=== PATIENT | male | born 1940 | race Caucasian/White ===

== ENCOUNTER 2017-01-17 06:53 | Day surgery (SDC) | payer MEDICARE ==
[2017-01-17] MEDS ORDERED: *PACU ONLY* KETAMINE HCL 10 MG/ML (20ML) VIAL IV ONE (06:54)
[2017-01-17] MEDS ORDERED: BUPIVACAINE 0.75% W/EPI MPF 30ML VIAL IVP ONE (06:54)
[2017-01-17] MEDS ORDERED: LIDOCAINE 1% W/EPI 1:200,000 MPF 30ML SQ ONE (06:54)
[2017-01-17] MEDS ORDERED: DEXAMETHASONE PRESERVATIVE FREE 10MG/ML VIAL IV ONE (06:54)
[2017-01-17] MEDS ORDERED: FENTANYL PF 100MCG/2ML VIAL IV ONE (06:54)
[2017-01-17] MEDS ORDERED: LIDOCAINE 2% MDV (20MG/ML) 20ML VIAL IV ONE (06:54)
[2017-01-17] MEDS ORDERED: MIDAZOLAM HCL 2MG/2ML VIAL IV ONE (06:54)
[2017-01-17] MEDS ORDERED: PROPOFOL 10 MG/ML VIAL IV ONE (06:54)
--- NOTE | 2017-01-18 05:10 | Operative Note - [place] ---
DATE OF SURGERY: 01/17/2017. 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 POSTOPERATIVE DIAGNOSIS: CERVICAL SPONDYLOSIS WITHOUT MYELOPATHY, ICD-10 CODE M47.812. OPERATION: Radiofrequency rhizotomy, right cervical facets 4-5, 5-6, and 6-7. SURGEON: Oksana Kinney D.O. ANESTHESIA: Local sedation. ANESTHESIA PROVIDER: Cris Sparrow CRNA. INDICATION: This patient presents with pain which is right sided in the neck and shoulder. Diagnostics show multilevel spondylosis, endplate spurring, and disc abnormalities. A rhizotomy series and facet series in the past provided 75 to 90 percent pain control. Due to the failure of other therapies, he is returning today for repeat cervical rhizotomy. PROCEDURE: Intravenous line, vital sign monitoring, and intravenous sedation. Prepped and draped with sterile technique with the patient positioned prone. Cervical facets on the right at 4-5, 5-6, and 6-7 were marked and infiltrated, and a 22-gauge rhizotomy canula was positioned. Stimulation trial was conducted and rhizotomy burn was performed. Local with anti-inflammatory into the sites. Topical antibiotic and sterile dressing were applied. Will monitor and evaluate. OKSANA KINNEY D.O. Date & Time JOB NUMBER: [id number] cc: Dex Adams M.D. MTDWashington
== END 2017-01-17 09:36 | disposition home or self-care (01) ==
LOC: SUR 06:53
PROVIDERS: ATTEND Pain Medicine Interventional Pain Medicine
DX: M47.812 Spondylosis without myelopathy or radiculopathy, cervical region (principal); I10 Essential (primary) hypertension; E78.00 Pure hypercholesterolemia, unspecified
CPT/HCPCS: 64633; 64634 ×2; 01936; J1100

== ENCOUNTER 2017-05-03 09:37 | Day surgery (SDC) | payer MEDICARE ==
[~2017-05-03 09:37] MED LIST: ACETAMINOPHEN 1,000 MG/100 ML BTL IV ONE
[2017-05-03] MEDS ORDERED: SEVOFLURANE 250 ML INH ONE (09:38)
[2017-05-03] MEDS ORDERED: KETOROLAC 30 MG/ML VIAL IVP ONE (09:38)
[2017-05-03] MEDS ORDERED: PROPOFOL 10 MG/ML VIAL IV ONE (09:38)
[2017-05-03] MEDS ORDERED: *PACU ONLY* KETAMINE HCL 10 MG/ML (20ML) VIAL IV ONE (09:38)
[2017-05-03] MEDS ORDERED: LIDOCAINE 2% MDV (20MG/ML) 20ML VIAL IV ONE (09:38)
--- NOTE | 2017-05-04 13:10 | Operative Note ---
DATE OF SURGERY: 05/03/2017 Surgeon: Kenrick Morgan DO Referring physician: Dex Adams MD PREOPERATIVE DIAGNOSIS: Trigger finger of the left middle finger. POSTOPERATIVE DIAGNOSIS: Trigger finger of the left middle finger. OPERATION: Tenotomy A1 andrew left middle finger, using a 3.5 loupe magnification. Anesthesia: General. PROCEDURE: This 77-year-old male was taken to the operating room and placed in the supine position on the operating room table. General anesthesia was induced and the left hand was elevated, prepped with Hibiclens, and draped in the usual sterile fashion. After exsanguination with tourniquet and elevation and prepping and draping, we made a longitudinal incision on the palm overlying the third metacarpal head, dissecting down through the skin and subcutaneous tissue; the length of the excision approximately 1.5 cm. Then, we dissected subcutaneous tissue, protecting the neurovascular bundles both medially and laterally, to expose the proximal edge of the A1 andrew. This was then incised from its proximal to its distal margin under direct vision. When we incised the andrew, a considerable amount of serous fluid came out from the inflammation of the tenosynovium. Surprisingly, a small nodularity of the tendon was noted and once the andrew had been completely decompressed, the finger was taken through a range of motion and found not to have any restriction or compression. The wound was irrigated and the wound closed with interrupted 6-0 nylon suture. Sterile dressings were applied and the patient taken to the recovery room in satisfactory condition. GROSS PATHOLOGY: This patient demonstrated a trigger finger of the left middle finger. The tendon itself appeared to be normal except for a small nodularity of the superficialis tendon, but no disruption of its fibers were identified. MTDD
== END 2017-05-03 12:47 | disposition home or self-care (01) ==
LOC: SUR 09:37
PROVIDERS: ATTEND Orthopaedic Surgery
DX: M65.332 Trigger finger, left middle finger (principal); E78.00 Pure hypercholesterolemia, unspecified; I10 Essential (primary) hypertension
CPT/HCPCS: 26055; 01810; J1885

== ENCOUNTER 2018-11-06 06:59 | Day surgery (SDC) | payer MEDICARE ==
[2018-11-06] MEDS ORDERED: FENTANYL PF 100MCG/2ML VIAL IV ONE (07:00)
[2018-11-06] MEDS ORDERED: LIDOCAINE 2% MDV (20MG/ML) 20ML VIAL IV ONE (07:00)
[2018-11-06] MEDS ORDERED: MIDAZOLAM HCL 2MG/2ML VIAL IV ONE (07:00)
[2018-11-06] MEDS ORDERED: PROPOFOL 10 MG/ML VIAL IV ONE (07:00)
[2018-11-06] MEDS ORDERED: RINGERS SOLUTION,LACTATED 1,000 ML IV ONE (07:26)
[2018-11-06] MEDS ORDERED: BUPIVACAINE 0.5% W/EPI MPF 30 ML VIAL SQ ONE (08:52)
[2018-11-06] MEDS ORDERED: LIDOCAINE 1% W/EPI 1:100,000 MDV 20 ML VIAL SQ ONE (08:52)
[2018-11-06] MEDS ORDERED: DEXAMETHASONE PRESERVATIVE FREE 10MG/ML VIAL SQ ONE (08:52)
--- NOTE | 2018-11-11 13:11 | Operative Note ---
DATE OF SURGERY: 11/06/2018 PREOPERATIVE DIAGNOSIS: Right cervical spondylosis without myelopathy, ICD10 code M47.812. OPERATION: Radiofrequency rhizotomy of right cervical facets 4-5, 5-6, 6-7. ANESTHESIA: Local with sedation. ANESTHESIA PROVIDER: Clifton George INDICATIONS: This patient presents with right-sided neck and shoulder pain. Diagnostics show diffuse multiple-level spondylitis change. A facet series 75% relief. Due to the failure of therapy and success of the facet series, patient presents for rhizotomy for more long-term control. PROCEDURE: Intravenous line, vital sign monitoring, IV sedation, prepped and draped in sterile technique. Under imaging, facet levels at 4-5, 5-6, and 6-7 were identified and marked, skin infiltrated. A 20-gauge rhizotomy cannula positioned. Stimulation trial was conducted. Rhizotomy burn performed. Local with antiinflammatory into the sites. Topical antibiotic and sterile dressing applied. Will monitor and evaluate. [facility]
== END 2018-11-06 09:35 | disposition home or self-care (01) ==
LOC: SUR 06:59
PROVIDERS: ATTEND Pain Medicine Interventional Pain Medicine
DX: M47.812 Spondylosis without myelopathy or radiculopathy, cervical region (principal); I10 Essential (primary) hypertension; K21.9 Gastro-esophageal reflux disease without esophagitis; I25.2 Old myocardial infarction; I25.10 Atherosclerotic heart disease of native coronary artery without angina pectoris; Z95.5 Presence of coronary angioplasty implant and graft
CPT/HCPCS: J7120